=== PATIENT | female | born 1980 | race Caucasian/White ===

== ENCOUNTER 2018-03-20 03:40 | Emergency (ER) | payer OTHER ==
[2018-03-20] MEDS: IBUPROFEN 600 MG TAB PO (04:31)
== END 2018-03-20 05:58 | disposition left against medical advice (07) ==
LOC: FTE 03:40
DX: M25.511 Pain in right shoulder (principal); M25.551 Pain in right hip; F17.210 Nicotine dependence, cigarettes, uncomplicated
CPT/HCPCS: 71045; 73510; 99284-25